=== PATIENT | female | born 1970 | race Caucasian/White ===

== ENCOUNTER → 2017-03-23 | Outpatient (CLI) | payer OTHER ==
--- NOTE | 2017-03-24 12:27 | REP ---
NUCLEAR THYROID UPTAKE AND SCAN: Following the oral administration of 409 microcuries iodine 123 as sodium iodide, thyroid uptake is measured. The 24-hour uptake is 15.6%, which is below the normal range of 25-35%. Thyroid scan shows the right lobe to be slightly larger than the left lobe, approximately 4-5 cm in length. No focal hot or cold nodule is seen. Signed by Marcel Cortes MD 03/24/2017 01:50 P
== END ==
LOC: M RAD 08:46
PROVIDERS: ATTEND Internal Medicine
DX: E05.90 Thyrotoxicosis, unspecified without thyrotoxic crisis or storm (principal)

== ENCOUNTER → 2018-04-15 | Outpatient (CLI) | payer OTHER | LOC: M RAD 07:27 | DX: K82.8 Other specified diseases of gallbladder (principal); R11.0 Nausea | CPT/HCPCS: J2805 ==

== ENCOUNTER 2018-09-09 08:01 | Day surgery (SDC) | payer OTHER ==
[2018-09-09] MEDS: NS 1,000 ML IV (08:14)
[2018-09-09] MEDS ORDERED: fentaNYL 100 MCG/2 ML INJECTION (J3010) As Ordered (09:46)
[2018-09-09] MEDS ORDERED: LIDOCAINE 2% INJ 100 MG/5 ML SDV (FOR ANES.) As Ordered (09:47)
[2018-09-09] MEDS ORDERED: PROPOFOL 500 MG/50 ML VIAL As Ordered (09:47)
== END 2018-09-09 09:41 | disposition home or self-care (01) ==
LOC: M OPP 08:01
DX: R12 Heartburn (principal); K20.9 Esophagitis, unspecified; M32.9 Systemic lupus erythematosus, unspecified; M19.90 Unspecified osteoarthritis, unspecified site; L71.9 Rosacea, unspecified; Z79.899 Other long term (current) drug therapy; Z83.79 Family history of other diseases of the digestive system; Z98.890 Other specified postprocedural states; Z92.21 Personal history of antineoplastic chemotherapy
CPT/HCPCS: 43239

== ENCOUNTER → 2019-08-29 | Outpatient (REF) | payer OTHER ==
[~2019-08-29] MED LIST: AZELAIC ACID TOP; BENEPOW7 PO; FAMO20TA PO; FISH7.5C PO; FOLI0.4T PO; HYDR200T3 PO; METH2.5T48 PO; MIRA3350 PO; MULT1TAB10 PO; OMEP40CA97 PO
== END ==
LOC: M LAB REF 13:56
PROVIDERS: ATTEND Radiology Diagnostic Radiology
DX: N63.0 Unspecified lump in unspecified breast (principal)